=== PATIENT | female | born 2000 ===

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

== ENCOUNTER → 2021-09-08 12:25 | Outpatient (CLI) | payer OTHER, SELFPAY ==
[2021-09-08 12:47] LABS: Add Manual Diff / Slide Review NO; Basophils Absolute Auto 100 /uL (0-100); Basophils Percent Auto 0.6 % (0-2); Eosinophils Absolute Auto 200 /uL (0-450); Eosinophils Percent Auto 1.8 % (2-4); Hematocrit 37.5 % (36-46); Hemoglobin 12.6 g/dL (12.0-16.0); Lymphocytes Absolute Auto 2900 /uL (1100-4500); Lymphocytes Percent Auto 32.5 % (25-40); Mean Corpuscular HGB Conc 33.6 % (30-36); Mean Corpuscular Volume 83.4 fL (80-100); Monocytes Absolute Auto 600 /uL (0-900); Monocytes Percent Auto 6.8 % (3-14); Neutrophils Absolute Auto 5300 /uL (1500-7000); Neutrophils Percent Auto 58.3 % (50-75); Platelet Count 274 X10^3/uL (150-400); Red Cell Distribution Width 13.6 % (11.6-14.8); White Blood Cell Count 9.1 X10^3/uL (4.5-11.0)
[2021-09-08 12:52] LABS: Monotest Negative (Negative)
[2021-09-08 12:59] LABS: Alanine Aminotransferase 21 IU/L (<35); Albumin 4.1 g/dL (3.5-5.0); Albumin Globulin Ratio 1.3 (1.0-2.8); Alkaline Phosphatase 72 U/L (38-126); Aspartate Aminotransferase 22 IU/L (14-36); BUN Creatinine Ratio 14.1 (6-22); Bilirubin Total 0.2 mg/dL (0.2-1.3); Blood Urea Nitrogen 10 mg/dL (7-17); Calcium 9.7 mg/dL (8.4-10.2); Carbon Dioxide 25 mmol/L (22-32); Chloride 104 mmol/L (98-107); Estimated Glomerular Filt Rate > 60.0 mL/min (>60); Globulin 3.1 g/dL (1.7-4.1); Glucose 104 mg/dL (70-100); HEMOLYSIS < 15 (0-50); Potassium 3.8 mmol/L (3.4-5.1); Sodium 139 mmol/L (137-145); Total Protein 7.2 g/dL (6.3-8.2)
== END ==
PROVIDERS: Family Provider Internal Medicine; PCP Internal Medicine; Referring Provider Internal Medicine; Visit Provider Internal Medicine
DX: J02.9 Acute pharyngitis, unspecified (principal); R50.9 Fever, unspecified
CPT/HCPCS: 36415; 80053; 85025; 86318

== ENCOUNTER → 2021-10-16 10:23 | Outpatient (CLI) | payer OTHER, SELFPAY ==
--- NOTE | 2021-10-16 | DI.RAD.S_ITS ---
PROCEDURE: XR CHEST 2V INDICATIONS: Acute upper respiratory infection, unspecified TECHNIQUE: 2 views of the chest were acquired. COMPARISON: [facility], , CHEST 2 VIEW, 12/18/2017, 8:57. FINDINGS: Surgical changes and devices: None. Lungs and pleura: No consolidation pleural effusions or pneumothorax. Mediastinum: Mediastinal contours are normal. Heart size is normal. Bones and chest wall: No suspicious bony abnormalities. Soft tissues appear unremarkable. IMPRESSION: No acute cardiopulmonary abnormality. Dictated by: Asa Medina M.D. on 10/16/2021 at 10:44 Approved by: Asa Medina M.D. on 10/16/2021 at 10:45
[2021-10-16 12:05] LABS: COVID-19 CEPHEID PCR (VTM/NP) Negative (Negative)
== END ==
PROVIDERS: Family Provider Internal Medicine; PCP Internal Medicine; Referring Provider Internal Medicine; Visit Provider Internal Medicine
DX: J06.9 Acute upper respiratory infection, unspecified (principal); R05.1 Acute cough; R78.9 Finding of unspecified substance, not normally found in blood; Z20.822 Contact with and (suspected) exposure to COVID-19
CPT/HCPCS: 36415; 71046; 80053; 83690; 85025; U0003

== ENCOUNTER → 2021-10-16 10:46 | Outpatient (CLI) | payer OTHER, SELFPAY ==
[2021-10-16 11:38] LABS: Add Manual Diff / Slide Review NO; Basophils Absolute Auto 100 /uL (0-100); Basophils Percent Auto 0.9 % (0-2); Eosinophils Absolute Auto 100 /uL (0-450); Hematocrit 38.5 % (36-46); Hemoglobin 13.2 g/dL (12.0-16.0); Lymphocytes Absolute Auto 2900 /uL (1100-4500); Lymphocytes Percent Auto 39.2 % (25-40); Mean Corpuscular HGB Conc 34.3 % (30-36); Mean Corpuscular Volume 81.8 fL (80-100); Monocytes Absolute Auto 500 /uL (0-900); Monocytes Percent Auto 7.3 % (3-14); Neutrophils Absolute Auto 3800 /uL (1500-7000); Neutrophils Percent Auto 50.6 % (50-75); Platelet Count 299 X10^3/uL (150-400); Red Blood Cell Count 4.71 X10^6/uL (4.0-5.2); Red Cell Distribution Width 13.8 % (11.6-14.8); White Blood Cell Count 7.4 X10^3/uL (4.5-11.0)
[2021-10-16 12:06] LABS: Alanine Aminotransferase 21 IU/L (<35); Albumin 4.4 g/dL (3.5-5.0); Albumin Globulin Ratio 1.2 (1.0-2.8); Alkaline Phosphatase 72 U/L (38-126); Aspartate Aminotransferase 27 IU/L (14-36); BUN Creatinine Ratio 9.2 (6-22); Bilirubin Total 0.4 mg/dL (0.2-1.3); Blood Urea Nitrogen 8 mg/dL (7-17); Carbon Dioxide 26 mmol/L (22-32); Chloride 106 mmol/L (98-107); Estimated Glomerular Filt Rate > 60.0 mL/min (>60); Globulin 3.6 g/dL (1.7-4.1); Glucose 80 mg/dL (70-100); HEMOLYSIS < 15 (0-50); Lipase 58 U/L (23-300); Potassium 4.1 mmol/L (3.4-5.1); Sodium 139 mmol/L (137-145)
== END ==
PROVIDERS: Family Provider Internal Medicine; PCP Internal Medicine; Referring Provider Internal Medicine; Visit Provider Internal Medicine
DX: J06.9 Acute upper respiratory infection, unspecified (principal); R78.9 Finding of unspecified substance, not normally found in blood
CPT/HCPCS: 36415; 80053; 83690; 85025

== ENCOUNTER → 2022-03-28 10:32 | Outpatient (CLI) | payer OTHER, SELFPAY ==
--- NOTE | 2022-03-28 10:35 | DI.RAD.S_ITS ---
PROCEDURE: XR CHEST 2V INDICATIONS: RIB PAIN TECHNIQUE: 2 views of the chest were acquired. COMPARISON: None. FINDINGS: Surgical changes and devices: None. Lungs and pleura: Lungs are clear. No pleural effusions or pneumothorax. Mediastinum: Mediastinal contours are normal. Heart size is normal. Bones and chest wall: No suspicious bony abnormalities. Soft tissues appear unremarkable. IMPRESSION: No acute cardiopulmonary disease process. Dictated by: Cesilia Christensen MD, PhD on 03/28/2022 at 13:29 Approved by: Cesilia Christensen MD, PhD on 03/28/2022 at 13:29
== END ==
PROVIDERS: Family Provider Internal Medicine; PCP Internal Medicine; Referring Provider Internal Medicine; Visit Provider Internal Medicine
DX: R07.81 Pleurodynia (principal)
CPT/HCPCS: 71046

== ENCOUNTER 2023-04-09 13:44 | Day surgery (SDC) | payer OTHER, SELFPAY ==
[2023-04-09 14:07] VITALS: BMI 25.3
[2023-04-09 14:24] VITALS: BP 121/83; PULSE 120; RESP 18; TEMP 37.3; O2SAT 100
[2023-04-09] MEDS: LACTATED RINGERS 1,000 ML 200 ML IV (14:26)
--- NOTE | 2023-04-09 15:21 | PM.PREOP ---
Pre-operative Note Interval Note History & Physical reviewed/Exam performed by Physician: Yes Changes to H&P: No
--- NOTE | 2023-04-09 15:22 | P.OP.COLON_ITS ---
Operative Date/Time/Diagnoses Date of procedure: 04/09/23 Time of procedure: 15:23 Pre-op diagnosis: Rectal bleeding Procedure & Clinicians Study performed: Colonoscopy Same procedure as scheduled: Yes Indications: Rectal bleeding Surgeon: Sherif Block Procedure Notes Procedure in detail: The history and physical was performed/updated and the patient is ASA class is 1. The procedure was discussed in detail with the patient. Potential risks complications including infection, bleeding, missed diagnosis, perforation, need for surgery, and were explained. Their questions were answered and informed consent was obtained. Patient was brought to the procedure room and placed standard monitoring equipment. The patient's vital signs were monitored continuously throughout the entire procedure. Prior to starting time-out was performed. The patient was placed in the left lateral recumbent position. Procedural sedation was administered by anesthesia. Examination began with a thorough inspection of the perianal area there was no evidence of fissures, fistulae, external hemorrhoids or cutaneous malignancy. The colonoscopy scope was then placed into the anal canal and was advanced to the cecum, which was identified by the ileocecal valve, the appendiceal orifice and the confluence of the taenia. The scope was then slowly withdrawn examining colon thoroughly in all directions, irrigating it of any residual stool. The colon is normal with the exception grade 2 internal hemorrhoids. Following completion of the colonoscopy the hemorrhoids were banded. Anoscope was inserted. The left lateral and right posterior hemorrhoid pedicles were g rasped with the suction and then doubly ligated at their base. A 1 cm simple perianal skin tag was excised using electrocautery. The wound was closed with interrupted Vicryl suture. The patient tolerated the procedure well. They will be discharged once criteria are met. The prep was of good/excellent quality. The withdrawl time was 7 minutes. Post-procedure Plan for aftercare: Avoid constipation. Docusate twice daily. Sitz bath twice daily x1 week Disposition: same day surgery
[2023-04-09] MEDS: BUPIVACAINE 0.25% (PF) 30 ML, EPINEPHrine 0.15 MG INJ (15:45)
[2023-04-09 16:15] VITALS: BP 86/50; PULSE 91; RESP 20; TEMP 37.2; O2SAT 97
[2023-04-09 16:21] VITALS: BP 85/50; PULSE 99; RESP 15; TEMP 37.2; O2SAT 100
[2023-04-09 16:26] VITALS: BP 116/81; PULSE 102; RESP 18; TEMP 37.2; O2SAT 99
[2023-04-09 16:33] VITALS: BP 118/81; PULSE 105; RESP 16; TEMP 37.2; O2SAT 100
[2023-04-09 16:39] VITALS: BP 115/69; PULSE 98; RESP 22; TEMP 37.1; O2SAT 100
== END 2023-04-09 16:45 | disposition home or self-care (01) ==
PROVIDERS: Family Provider Internal Medicine; PCP Internal Medicine; Referring Provider Surgery; Visit Provider Surgery
PROC: 0DJD8ZZ Inspection of Lower Intestinal Tract, Via Natural or Artificial Opening Endoscopic (ICD-10-PCS; CPT 45378; principal; 2023-04-09 14:45)
DX: K62.5 Hemorrhage of anus and rectum (principal); K64.1 Second degree hemorrhoids; K64.4 Residual hemorrhoidal skin tags
CPT/HCPCS: 45378; 46221; J0171; J2250; J2704; J3010

== ENCOUNTER 2024-03-12 14:08 | Emergency (ER) | payer OTHER, SELFPAY ==
[2024-03-12 14:11] VITALS: BP 143/94; PULSE 86; RESP 18; TEMP 36.7; O2SAT 100; BMI 24.2
--- NOTE | 2024-03-12 14:22 | ED_ITS ---
HPI - Female Genitourinary <Jon Elias PA-C - Last Filed: 03/12/24 14:52> General Chief complaint: Urogenital-Female Stated complaint: poss uti Time Seen by Provider: 03/12/24 14:16 Source: patient Mode of arrival: Ambulatory History of Present Illness HPI Narrative: This is a 23-year-old female presenting to the emergency department due to urinary odor as well as mild dysuria for the last month. States she was a frequent history of UTIs and this feels very similar. Denies any fevers, abdominal pain, significant lower back pain, nausea, vomiting, or any other concerning signs or symptoms. Denies any vaginal discharge. Related Data Home Medications Medication Instructions Recorded Confirmed amitriptyline 50 mg tablet 50 mg PO DAILY 03/08/23 04/09/23 drospirenone 3 mg-ethinyl 1 tab PO DAILY 03/08/23 04/09/23 estradiol 0.02 mg tablet spironolactone 25 mg tablet 25 mg PO BID 03/08/23 04/09/23 cetirizine 10 mg tablet (Zyrtec) 10 mg PO DAILY 04/09/23 04/09/23 Previous Rx's Medication Instructions Recorded acetaminophen 325 mg capsule 650 mg (2 x 325 mg) PO QID PRN 04/09/23 (Tylenol) pain #60 caps docusate sodium 100 mg capsule 100 mg PO BID #30 caps 04/09/23 (Colace) nitrofurantoin 100 mg PO Q12H 5 days #10 caps 03/12/24 monohydrate/macrocrystals 100 mg capsule (Macrobid) Allergies Allergy/AdvReac Type Severity Reaction Status Date / Time amoxicillin [From AMOXIL] Allergy Mild RASH Verified 04/09/23 14:25 Review of Systems <Jon Elias PA-C - Last Filed: 03/12/24 14:52> Review of Systems Narrative: GENERAL: Denies chills, fatigue, malaise, fever, sweats. HEENT: Denies sinus pain, ear pain, sore throat, difficulty swallowing, dizziness. RESPIRATORY: Denies dyspnea, cough, wheezing, hemoptysis, sputum. CARDIOVASCULAR: Denies chest pain, palpitations, orthopnea, edema, GASTROINTESTINAL: Denies nausea, vomiting, abdominal pain, diarrhea, constipation, melena. : Reports dysuria and foul urinary odor. Denies , frequency, incontinence, hematuria, urinary retention. MUSCULOSKELETAL: denies weakness, joint pain, or bony pain SKIN: Denies rash, skin lesions, or other NEUROLOGIC: Denies weakness, headache, numbness, change in speech, confusion, seizures, incoordination. PSYCHIATRIC: No concerning psychosocial issues. 12 point review of systems is negative except for those stated above Patient History <Jon Elias PA-C - Last Filed: 03/12/24 14:52> Medical History (Updated 03/12/24 @ 14:52 by Jon Elias PA-C) Anxiety (~2019) Human papilloma virus (~2022) Abnormal Pap smear of cervix (~2022) Frequent UTI (~2019) Irritable bowel syndrome (~2019) Hemorrhoids (~2022) Acne (04/10/16) Surgical History (Updated 01/14/24 @ 20:40 by Kayli Pavon) Anesthesia History of exam under anesthesia with hemorrhoid banding (~2022) [place] teeth removed Family History (Updated 01/14/24 @ 20:42 by Kayli Pavon) Grandmother Diabetes mellitus Breast cancer Father Hypertension Grandfather Cancer Grandmother Diabetes mellitus Hypertension alcohol intake frequency: a few times a week Substance Use Type: does not use Exam <Jon Elias PA-C - Last Filed: 03/12/24 14:52> Narrative Exam Narrative: GENERAL: Well-developed patient, in mild distress. HEAD: Atraumatic. Normocephalic. EYES: Pupils equal round and reactive. Extraocular motions intact. No scleral icterus. No injection or drainage. ENT: Nose without bleeding, purulent drainage. Throat without erythema, tonsillar hypertrophy or exudate. Airway patent. NECK: Trachea midline. Non tender EXTREMITIES: No edema or joint tenderness. NEURO: AOx3. SKIN: No rash or erythema of visible areas Back: No CVA tenderness to palpation Initial Vital Signs Initial Vital Signs: Vital Signs Temperature 98.1 F 03/12/24 14:11 Pulse Rate 86 03/12/24 14:11 Respiratory Rate 18 03/12/24 14:11 Blood Pressure 143/94 H 03/12/24 14:11 Pulse Oximetry 100 03/12/24 14:11 Oxygen Delivery Method Room Air 03/12/24 14:11 <Ayala Dietrich DO - Last Filed: 03/15/24 07:31> Initial Vital Signs Initial Vital Signs: Vital Signs Temperature 98.1 F 03/12/24 14:11 Pulse Rate 86 03/12/24 14:11 Respiratory Rate 18 03/12/24 14:11 Blood Pressure 143/94 H 03/12/24 14:11 Pulse Oximetry 100 03/12/24 14:11 Oxygen Delivery Method Room Air 03/12/24 14:11 Course <Jon Elias PA-C - Last Filed: 03/12/24 14:52> Orders Ordered: ED Orders 03/12/24 14:27 Urinalysis and Microscopic Stat 03/12/24 14:30 Urine Culture Stat Vital Signs Vital signs: Vital Signs - 8 hr 03/12/24 14:11 Temperature 98.1 F Pulse Rate 86 Respiratory Rate 18 Blood Pressure 143/94 H Pulse Oximetry 100 Oxygen Delivery Method Room Air <Ayala Dietrich DO - Last Filed: 03/15/24 07:31> Orders Ordered: ED Orders 03/12/24 14:27 Urinalysis and Microscopic Stat 03/12/24 14:30 Urine Culture Stat Vital Signs Vital signs: Vital Signs - 8 hr 03/12/24 14:11 Temperature 98.1 F Pulse Rate 86 Respiratory Rate 18 Blood Pressure 143/94 H Pulse Oximetry 100 Oxygen Delivery Method Room Air MDM - Female Genitourinary <NAINA Roca Last Filed: 03/12/24 14:52> Lab Data Labs: Lab Results 03/12/24 Range/Units 14:30 Urine Color Straw Urine Appearance Slightly cloudy Urine pH 7.0 (4.5-8.0) Ur Specific [place] 1.005 (1.000-1.035) Urine Protein Negative (Negative) Urine Glucose (UA) Negative (Negative) g/dL Urine Ketones Negative (NEGATIVE) Urine Occult Blood Negative (Negative) Urine Nitrate Positive H (Negative) Urine Bilirubin Negative (NEGATIVE) Urine Urobilinogen Normal (0.2) E.U./dL Ur Leukocyte Esterase 3+ H (NEGATIVE) Urine RBC None seen (0-5/HPF) Urine WBC 5-10/hpf H (0-5/HPF) Ur Squamous Epith Cells 1-5 /hpf (0-5/HPF) Urine Bacteria Many (>30) H (None) Ur Culture Indicated? Specimen cultured Vol Urine Centrifuged 10ml (spun) MDM Narrative Medical decision making narrative: ED course: This is a 23-year-old female presents to the emergency department due to UTI symptoms. UA is positive for leukocytes and nitrites. We will treat for a simple cystitis. No findings suggestive of acute complicated cystitis or pyelonephritis. Does not describe any vaginal discharge concerning for BV, gonorrhea, chlamydia, Trichomonas, Ana Maria CC: Dysuria Complicating co-morbidities: None Data collected from: Previous notes Medical records reviewed: Patient was not been to this emergency department in the past. Differential considered, but not limited to: Simple cystitis, complicated cystitis, gonorrhea, chlamydia Exam documented above, pertinent findings include: No CVA tenderness to palpation Lab Test results independently reviewed as above. Pertinent findings: UA positive for leukocytes and nitrites Imaging studies independently reviewed: Not obtained Scores Used: None MIPS Elements: None Consultations: None Treatments: None Re-evaluations: None Discussion: Discussed plan with the patient was comfortable with the plan Diagnosis: Simple cystitis Disposition: see below, along with detailed discharge instructions that have been reviewed with patient as well as indications for ED re-evaluation and additional outpatient follow up <Ayala Dietrich, DO - Last Filed: 03/15/24 07:31> Lab Data Labs: Lab Results 03/12/24 Range/Units 14:30 Urine Color Straw Urine Appearance Slightly cloudy Urine pH 7.0 (4.5-8.0) Ur Specific [place] 1.005 (1.000-1.035) Urine Protein Negative (Negative) Urine Glucose (UA) Negative (Negative) g/dL Urine Ketones Negative (NEGATIVE) Urine Occult Blood Negative (Negative) Urine Nitrate Positive H (Negative) Urine Bilirubin Negative (NEGATIVE) Urine Urobilinogen Normal (0.2) E.U./dL Ur Leukocyte Esterase 3+ H (NEGATIVE) Urine RBC None seen (0-5/HPF) Urine WBC 5-10/hpf H (0-5/HPF) Ur Squamous Epith Cells 1-5 /hpf (0-5/HPF) Urine Bacteria Many (>30) H (None) Ur Culture Indicated? Specimen cultured Vol Urine Centrifuged 10ml (spun) Discharge Plan Departure Patient Disposition: Home Clinical Impression: Acute bacterial simple cystitis Instructions: DI for Urinary Tract Infection (UTI) Activity Restrictions/Additional Instructions: Thank you for coming to the [facility] Emergency Department today. Basic urine appears that you have a urinary tract infection. Please take the antibiotics as prescribed. Please return to the emergency department if you develop any nausea, vomiting, high fevers, or any other concerning signs or symptoms. I hope you feel better soon. Please follow up with your primary care provider within a week if your symptoms continue. If you do not have a primary care provider please contact the [facility] Resource line at [phone]. They will ask some questions about your medical history and help you get set up with a provider in the community. Prescriptions: New nitrofurantoin monohyd/m-cryst [Macrobid] 100 mg capsule 100 mg PO Q12H 5 Days Qty: 10 0RF Rx Instructions: must administer with a meal/food No Action amitriptyline 50 mg tablet 50 mg PO DAILY spironolactone 25 mg tablet 25 mg PO BID drospirenone-ethinyl estradiol 3-0.02 mg tablet 1 tab PO DAILY cetirizine [Zyrtec] 10 mg Tablet 10 mg PO DAILY docusate sodium [Colace] 100 mg capsule 100 mg PO BID Qty: 30 0RF acetaminophen [Tylenol] 325 mg capsule 650 mg PO QID PRN (Reason: pain) Qty: 60 0RF Referrals: Neptali Mccray MD [Primary Care Provider] - Stand Alone Forms: Patient Portal/API ED Sign-out <Ayala Dietrich DO - Last Filed: 03/15/24 07:31> Cosign ED Attending Song Attestation: I was immediately available in the department for consultation.
[2024-03-12 14:43] LABS: Appearance Urine UA Slightly Cloudy; Color Urine UA Straw; Protein Urine UA Negative (Negative); Specific Gravity Urine UA 1.005 (1.000-1.035)
[2024-03-12 14:44] LABS: Bilirubin Urine UA Negative (NEGATIVE); Glucose Urine UA NEGATIVE (Negative); Ketones Urine UA NEGATIVE (NEGATIVE); Leukocyte Esterase Urine UA 3+ (NEGATIVE); Nitrite Urine UA POSITIVE (Negative); Occult Blood Urine UA Negative (Negative); Urobilinogen Urine UA Normal E.U./dL (0.2)
[2024-03-12 14:45] LABS: Urine Volume 10mL (spun)
[2024-03-12 14:46] LABS: Bacteria Urine Many (>30); Culture Indicated Urine Specimen Cultured; RBC Urine None Seen (0-5/HPF); Squamous Epithelial Cell Urine 1-5 /HPF (0-5/HPF); WBC Urine 5-10/HPF (0-5/HPF)
== END 2024-03-12 15:00 | disposition home or self-care (01) ==
PROVIDERS: Emergency Provider Physician Assistant Medical; Family Provider Internal Medicine; PCP Family Medicine
DX: N30.00 Acute cystitis without hematuria (principal); B96.89 Other specified bacterial agents as the cause of diseases classified elsewhere
CPT/HCPCS: 81001; 87077; 87086; 87186; 99281; 99283